=== PATIENT | male | born 1955 | race Hispanic/Latino ===

== ENCOUNTER → 2024-02-01 | Outpatient (REF) | payer MEDICARE ==
[2024-02-01 10:43] LABS: FREE THYROXINE INDEX 2.2237 (1.4-3.8); T3 UPTAKE 24.33 % (22.5-37.0); T4 (THYROXINE) 9.14 ug/dL (4.5-10.9); THYROID STIMULATING HORMONE 0.464 uIU/mL (0.350-4.940)
== END ==
LOC: NM 08:05
PROVIDERS: ATTEND Surgery
DX: E04.2 Nontoxic multinodular goiter (principal)
CPT/HCPCS: 36415; 78014; 84436; 84443; 84479; A9516